=== PATIENT | female | born 1945 | race Caucasian/White ===

== ENCOUNTER → 2017-09-10 | Outpatient (CLI) | payer MEDICARE, OTHER ==
[~2017-09-10] MED LIST: CLARITIN10 MG PO; KLOR-CON 1010 MEQ PO; LEVOXYL100 MCG PO; PROZAC20 MG PO; SIMVASTATIN40 MG PO; TENORMIN50 MG PO; ZOFRAN ODT4 MG PO
== END ==
LOC: M.MRI 13:51
DX: M16.12 Unilateral primary osteoarthritis, left hip (principal); R19.04 Left lower quadrant abdominal swelling, mass and lump

== ENCOUNTER → 2017-09-16 | Outpatient (CLI) | payer MEDICARE, OTHER | LOC: M.ULTRA 11:19 | DX: R19.07 Generalized intra-abdominal and pelvic swelling, mass and lump (principal) ==

== ENCOUNTER 2018-01-22 22:49 | Inpatient (IN) | payer MEDICARE, OTHER ==
[~2018-01-22] VITALS: Ht 152.4 cm; Wt 70.3 kg
[2018-01-22 22:56] VITALS: BP 104/51
[2018-01-22 23:36] LABS: HEMATOCRIT 35.2 % (37.0-47.0); HEMOGLOBIN 11.7 gm/dL (12.0-15.0); MCHC 33.4 g/dL (28.0-37.0); MCV 86.9 fL (80.0-100.0); MPV 7.1 fl. (7.2-11.1); NUCLEATED RBCS 0 /100WBC; PLATELET COUNT* 244 thou/uL (150-400); RBC 4.04 mil/uL (4.20-5.00); RDW-CV 13.9 % (10.5-14.5); WBC 8.3 thou/uL (4.0-11.0)
[2018-01-22 23:48] LABS: ALBUMIN 3.1 g/dL (3.4-5.0); CALCIUM 7.7 mg/dL (8.5-10.1); CREATININE 1.3 mg/dL (0.6-1.3); POTASSIUM 4.5 mmol/L (3.5-5.1); TOTAL BILIRUBIN 0.2 mg/dL (<0.1-1.0); TOTAL PROTEIN 6.9 g/dL (6.4-8.2)
[2018-01-23 00:05] LABS: URINE BILIRUBIN NEGATIVE (Negative); URINE BLOOD NEGATIVE (Negative); URINE CLARITY CLEAR; URINE COLOR YELLOW; URINE GLUCOSE-RANDOM NEGATIVE (Negative); URINE KETONES NEGATIVE (Negative); URINE LEUKOCYTES-REFLEX TRACE (Negative); URINE NITRITE-REFLEX NEGATIVE (Negative); URINE PROTEIN TRACE (Negative); URINE SPECIFIC GRAVITY 1.015 (1.005-1.030)
[2018-01-23 00:12] LABS: AMORPHOUS URATES Moderate /LPF (None Seen); BACTERIA-REFLEX >30 Many /HPF (None Seen); CASTS None Seen /LPF (None Seen); MUCUS 4-6 Moderate strn/LPF (None Seen); SQUAMOUS 4-10 Moderate /LPF (0-3); TRANSITIONAL EPITHEL CELL 0-3 Few /LPF (None Seen); URINE RBC 0-2 Rare /HPF (0-2); URINE WBC-REFLEX 6-15 Few /HPF (0-5)
[2018-01-23 00:19] LABS: ABSOLUTE EOSINOPHILS 0.5 thou/uL (0.0-0.7); ABSOLUTE LYMPHOCYTES 0.2 thou/uL (0.8-5.3); ABSOLUTE MONOCYTES 0.3 thou/uL (0.0-1.2); ABSOLUTE NEUTROPHILS 7.2 thou/uL (1.6-8.1); PLATELET ESTIMATE ADEQUATE; TOXIC GRANULATION 2+
[2018-01-23 00:20] LABS: ANISOCYTOSIS Occasional
[2018-01-23 01:40] VITALS: BP 104/51
[2018-01-23 04:00] VITALS: BP 111/53
[2018-01-23 07:20] VITALS: BP 111/53
[2018-01-23 10:18] LABS: CALCIUM 7.3 mg/dL (8.5-10.1); CREATININE 1.1 mg/dL (0.6-1.3); POTASSIUM 3.6 mmol/L (3.5-5.1)
--- NOTE | 2018-01-23 12:00 | NUR ---
RECEIVED PT CARE 0700. SHE IS ALERT AND ORIENTED X4. VSS. OFFICE CLINICIAN TRACING SR. SHE DENIES ANY SOA. O2 SAT 98-99% ON ROOM AIR. SHE IS UP STANDBY ASSIST IN ROOM WITH BATHROOM PRIVILEDGES. GAIT IS STEADY. C/O BILATERAL FEET AND BACK PAIN. PRN PAIN MEDICATION GIVEN WITH PARTIAL RELIEF. AM ASSESSMENT CHARTED. MEDS PER MAR. POTENTIAL DC TOMORROW IF STABLE.
[2018-01-23 12:04] VITALS: BP 113/49
[2018-01-23 16:21] VITALS: BP 104/57
--- NOTE | 2018-01-23 16:26 | NUR ---
INITIAL ASSESSMENT: Pt evaluated for d/c planning needs. Reviewed chart and spoke with nurse and pt. Pt is alert and oriented. Pt lives in house and adult daughter lives with her. Pt recently had hip surgery. She went to [facility] after surgery and had since returned home with outpatient PT. Pt has not had home health in the past. Pt has walker and cane at home. Pt plans on returning home on d/c from hospital. Will remain available to assist as needed.
--- NOTE | 2018-01-23 18:12 | NUR ---
PATIENT PROGRESSING TOWARDS GOALS. PAIN CONTROLLED WITH PRN PAIN MEDICATIONS. TOLERATING HER DIET WELL WITHOUT ANY NAUSEA OR VOMITING. PRN BENADRYL GIVEN X1 FOR HER RASH AND COMPLAINTS OF MILD ITCHING. HOURLY ROUNDING CHARTED. KEEPING CALL LIGHT WITHIN REACH. WILL CONTINUE TO MONITOR.
[2018-01-23 19:30] VITALS: BP 109/57
[2018-01-24] VITALS: BP 121/53
[2018-01-24 04:00] VITALS: BP 110/36
[2018-01-24 04:49] LABS: HEMATOCRIT 31.4 % (37.0-47.0); HEMOGLOBIN 10.6 gm/dL (12.0-15.0); MCH 29.3 pg (26.0-34.0); MCHC 33.7 g/dL (28.0-37.0); MCV 86.9 fL (80.0-100.0); MPV 7.6 fl. (7.2-11.1); RBC 3.61 mil/uL (4.20-5.00); RDW-CV 13.8 % (10.5-14.5); WBC 4.3 thou/uL (4.0-11.0)
[2018-01-24 05:01] LABS: CALCIUM 7.8 mg/dL (8.5-10.1); CREATININE 0.8 mg/dL (0.6-1.3); MAGNESIUM 1.6 mg/dL (1.8-2.4); POTASSIUM 4.5 mmol/L (3.5-5.1)
--- NOTE | 2018-01-24 07:13 | NUR ---
PT SLEPT MOST OF SHIFT. ASSESSMENT DOCUMENTED. MEDS GIVEN PER E-MAR. IV PATENT, FLUIDS FINISHED INFUSING. PAIN MEDS GIVEN PER E-MAR. WILL CONTINUE WITH PLAN OF CARE.
[2018-01-24 07:51] VITALS: BP 129/85
--- NOTE | 2018-01-24 08:00 | NUR ---
RECEIVED REPORT. ASSUMED CARE OF PT AT 0730. VSS. CARDIAC MONITORING IN PLACE SR. AM ASSESSMENT AND VITALS COMPLETED CAHRTED. PT ALERT AND ORIENTED THIS AM. PT ON RA. IV SALINE LOCKED. PT REPORTS PAIN TO LE FROM RASH. PT IS UP AD MALACHI. PT WANTS TO SHOWER THIS AM. PT REPORTS FEELING WELL THIS AM. CALL LIGHT IS WITHIN REACH. PT ASSISTED TO SHOWER. WILL CONTINUE TO MONITOR FOR DURATION OF SHIFT.
[2018-01-24 11:26] VITALS: BP 104/61
[2018-01-24 15:47] VITALS: BP 130/70
--- NOTE | 2018-01-24 17:26 | NUR ---
VSS. CARDIAC MONITORING IN PLACE WITH NO CHANGES THIS SHIFT. PT PROGRESSING TOWARDS GOALS. PT REMAINS ON RA. PT REPORTS RELIEF OF FOOT PAIN WITH GABAPENTIN. PT DID HAVE SOME N/V THIS EVENING ZOFRAN GIVEN. IVF INFUSING PER ORDERS. PT IS UP AD MALACHI IN ROOM. CALL LIGHT IS WITHIN REACH. WILL CONTINUE TO MONITOR FOR DURATION OF SHIFT.
[2018-01-24 20:10] VITALS: BP 133/68
[2018-01-25] VITALS: BP 146/66
[2018-01-25 04:00] VITALS: BP 129/68
--- NOTE | 2018-01-25 04:46 | NUR ---
A&O X4 CALM COOPRITIVE. SR ON THE MONITOR. RA. ADLIB IN ROOM. VITALS WNL. SEE MAR. SEE CHART. HOURLY ROUNDING FOR SAFETY.
[2018-01-25 05:04] LABS: HEMATOCRIT 29.6 % (37.0-47.0); HEMOGLOBIN 10.1 gm/dL (12.0-15.0); MCH 29.3 pg (26.0-34.0); MCHC 33.9 g/dL (28.0-37.0); MCV 86.3 fL (80.0-100.0); MPV 8.1 fl. (7.2-11.1); RBC 3.43 mil/uL (4.20-5.00); RDW-CV 13.3 % (10.5-14.5); WBC 4.5 thou/uL (4.0-11.0)
[2018-01-25 05:38] LABS: CALCIUM 7.6 mg/dL (8.5-10.1); CREATININE 0.7 mg/dL (0.6-1.3); POTASSIUM 3.9 mmol/L (3.5-5.1)
[2018-01-25 07:32] VITALS: BP 112/61
--- NOTE | 2018-01-25 09:16 | NUR ---
RECIEVED REPORT. ASSUMED CARE OF PT AT 0730. VSS. CARDIAC MONITORIING IN PLACE SR. AM ASSESSMENT AND VITALS COMPELTED CHARTED. PT ALERT AND ORIENTED THIS AM. PT ON RA. IVF INFUSING PER ORDERS. PT REPORTS NECK PAIN THIS AM PRN TYLENOL GIVEN. PT REPORTS GABAPENTIN HAS HELPED HER FEET. PT REPORTS SWELLING TO HANDS. PT IS UP INDEPENDENTLY IN ROOM. REPLACING MG. PT INFORMED OF PLAN OF CARE. CALL LIGHT IS WITHIN REACH. WILL CONTINUE TO MONITOR FOR DURATION OF SHFIT.
[2018-01-25 12:21] VITALS: BP 103/53
[2018-01-25 15:55] VITALS: BP 121/60
[2018-01-25 20:00] VITALS: BP 135/66
[2018-01-26] VITALS: BP 135/63
[2018-01-26 04:00] VITALS: BP 125/56
[2018-01-26 05:17] LABS: HEMATOCRIT 31.9 % (37.0-47.0); HEMOGLOBIN 11.1 gm/dL (12.0-15.0); MCHC 34.9 g/dL (28.0-37.0); MCV 85.7 fL (80.0-100.0); MPV 7.8 fl. (7.2-11.1); RBC 3.72 mil/uL (4.20-5.00); RDW-CV 13.4 % (10.5-14.5); WBC 4.7 thou/uL (4.0-11.0)
[2018-01-26 05:47] LABS: ALBUMIN 2.8 g/dL (3.4-5.0); CALCIUM 7.9 mg/dL (8.5-10.1); CREATININE 0.7 mg/dL (0.6-1.3); MAGNESIUM 1.4 mg/dL (1.8-2.4); POTASSIUM 4.2 mmol/L (3.5-5.1); TOTAL BILIRUBIN 0.2 mg/dL (<0.1-1.0)
--- NOTE | 2018-01-26 07:40 | NUR ---
RECEIVED REPORT. ASESUMED CARE OF PT AT 0730. VSS. CARDIAC MONITORING IN PLACE SR. AM ASSESSMENT AND VITALS COMPLETED CHARTED. PT ALERT AND ORIENTED. PT ON RA. IV SALINE LOCKED. PT DENIES ANY COMPLAINTS OF PAIN OR DISCOMFORT THIS AM. PT INFORMED OF PLAN OF CARE. CALL LIGHT IS WITHIN REACH. WILL CONTINUE TO MONITOR FOR DURATION OF SHIFT.
[2018-01-26 07:57] VITALS: BP 139/66
[2018-01-26 12:09] VITALS: BP 103/52
--- NOTE | 2018-01-26 12:09 | NUR ---
PT'S MEDICAL CHART REVIEWED AND STATUS DISCUSSED W/ NSG. PT VOICES NO CONCERNS REGARDING DISCHARGE TO HOME. PT DEMO INDEPENDENT AND STABLE TRANSFERS AND GAIT W/O DME SUPPORT. ACUTE PT SERVICES ARE NOT INDICATED AT THIS TIME.
--- NOTE | 2018-01-26 12:23 | NUR ---
CONTINUE TO FOLLOW. PT STATES FEELING IMPROVED. SHE PLANS TO RETURN HOME AT [place]. SHE LIVES WITH HER DTR WHO HAS DOWNS. HER OTHER GRANDDTR AND SPOUSE ARE STAYING WITH THEM AT THIS TIME AND ASSISTING WITH DTRS CARE. PT USES NO EQUIPMENT AT THIS TIME, HAS WALKER AND CANE IF NEEDED. HSE DENIES ANY DC NEEDS AT THIS TIME
[2018-01-26 15:32] VITALS: BP 135/66
--- NOTE | 2018-01-26 17:21 | NUR ---
VSS. CARDIAC MONTIORING IN PLACE WITH NO CHAGNES THIS SHFIT. PT PROGRESSING TOWARDS GOALS. PT ON RA. NO IV ACCESS. PT DENIES ANY COMPLAINTS OF PAIN OR DISCOMFORT THIS SHIFT. PT IS UP AD MALACHI IN ROOM. PT INFORMED OF PLAN OF CARE. CALL LIGHT IS WITHIN REACH. WILL CONTINUE TO MONTIOR FOR DURATION OF SHFIT.
[2018-01-26 19:30] VITALS: BP 127/65
[2018-01-27] VITALS: BP 126/75
[2018-01-27 04:21] VITALS: BP 134/76
--- NOTE | 2018-01-27 04:23 | NUR ---
PATIENT PROGRESSING TOWARDS GOALS: PATIENT WALKED HALLWAYS THIS SHIFT WITH NO ISSUES. PATIENT REMAINS ON ROOM AIR. PATIENT VOICED THAT SHE HAD NOT SLEPT THE NIGHT BEFORE. REST AND COMFORT PROMOTED WITH QUIET AND DARK ENVIRONMENT, WELL ADMINISTRATION OF MELATONIN AND LORAZEPAM. PATIENT ABLE TO SLEEP WELL THUS FAR. C/O PAIN ONE TIME IN LEFT LEG, RELIEVED WITH PRN HYDROCODONE. HOURLY ROUNDING OBSERVED. CALL LIGHT WITHIN REACH
[2018-01-27 05:07] LABS: CALCIUM 8.4 mg/dL (8.5-10.1); CREATININE 0.7 mg/dL (0.6-1.3); POTASSIUM 3.7 mmol/L (3.5-5.1)
[2018-01-27 08:06] VITALS: BP 137/70
--- NOTE | 2018-01-27 09:37 | NUR ---
ASSUMED CARE OF PT THIS AM AROUND 0715- PROCUREMENT COST COORDINATOR IN PLACE ORDERED, TRACING SB WITH 1ST DEGREE- UPON ASSESSMENT PT NOTED TO BE RESTING IN BED EYES CLOSED- EASILY ARROUSABLE- PT A&O X4- CONTINET OF BOWEL AND BLADDER- UP AD-MALACHI- LCTA, DIMINSHED IN BASES- VSS, O2 SAT 96% ON RA- ABDOMEN SOFT/ROUND/NON-TENDER, BS X4 QUADS- PT REPORTS LAST BM THIS AM- LEFT HIP INCISSION WITH PINKNESS, SLIGHT WARMTH; NOTED TO BE HEALING WELL- NO IV ACCESS NOTED- MG CURRENLTY BEING REPLACED PER PROTOCOL- PT RATES PAIN 5/10 TO LEFT HIP, REPORTS TO GET BETTER WITH REPOSITIONING AND MOVEMENT- GOOD PO INTAKE NOTED THIS AM WITH BREAKFAST- CALL LIGHT AND PERSONAL BELONGINGS WITH IN REACH- HOURLY ROUNDS IN PLACE R/T SAFETY/NEEDS- ALL NEEDS MET AT THIS TIME-WCTM
[2018-01-27 10:24] VITALS: BP 137/70
[2018-01-27 12:00] VITALS: BP 117/59
--- NOTE | 2018-01-27 14:12 | NUR ---
ORDERS RECIEVED FOR OKAY TO D/C THIS PER - EMPLOYEE BENEFITS SPECIALIST D/C'D PRIOR TO D/C- D/C EDUCATION/TEACHING GIVEN TO PT PRIOR TO D/C, WITH ALL QUESTIONS AND CONCERNS ADDRESSED PRIOR TO D/C- WRITTEN EDUCATION PROVIDED TO PT PRIOR TO D/C- NEED F/U WITH PCP COMMUNICATED WITH NEED BMP IN 1 WEEK TO PT, WITH VERBAL UNDERSTANDING RECIEVED PER PT- BELONGINGS PACKED AND ACCOUNTED FOR PER PT- PT CURRENLTY RESTING IN BED SIDE CHAIR WATCHING TV AWAITTING FOR RIDE FOR D/C- ALL NEEDS MET AT THIS TIME-WCTM
== END 2018-01-27 15:12 | disposition home or self-care (01) | DRG 74 ==
LOC: M.ERS 22:49 → M.TBA-ER 01-23 00:50 → M.2W 01-23 00:50
PROVIDERS: Internal Medicine; Nurse Practitioner Family; ADMIT Internal Medicine
DX: G62.2 Polyneuropathy due to other toxic agents (principal); E87.1 Hypo-osmolality and hyponatremia; E86.1 Hypovolemia; L27.0 Generalized skin eruption due to drugs and medicaments taken internally; J02.8 Acute pharyngitis due to other specified organisms; I10 Essential (primary) hypertension; E03.9 Hypothyroidism, unspecified; E78.5 Hyperlipidemia, unspecified; T37.0X5A Adverse effect of sulfonamides, initial encounter; Z96.642 Presence of left artificial hip joint; Y92.89 Other specified places as the place of occurrence of the external cause; Z79.899 Other long term (current) drug therapy; Z90.721 Acquired absence of ovaries, unilateral; Z88.1 Allergy status to other antibiotic agents; Z88.2 Allergy status to sulfonamides